=== PATIENT | male | born 1945 | race Caucasian/White ===

== ENCOUNTER → 2016-07-26 | Outpatient (REF) | payer MEDICARE ==
[~2016-07-26] MED LIST: /WARF25TA; ACET65TA; ACTO30TA; ASPI1TAB PO; AZEL0.055; FENT100D25; FENT10PA TD; GABA600T PO; GLUC1000; HYDR-3719 PO; JANU100T PO; KEFL500C; LOSA50TA20 PO; METF1000 PO; NEUR300C; NICO14DI3; OXYB5TAB PO; OXYC10TA97; PERC5TAB8; WELCHOL
== END ==
LOC: M LAB REF 16:48
PROVIDERS: ATTEND Nurse Practitioner Adult Health
DX: L81.8 Other specified disorders of pigmentation (principal)

== ENCOUNTER → 2016-09-13 | Outpatient (CLI) | payer MEDICARE ==
[~2016-09-13] MED LIST changes: -METF1000 PO; +METF10004 PO
== END ==
LOC: M SMT 10:38
PROVIDERS: ATTEND Nurse Practitioner Women's Health
DX: N40.0 Benign prostatic hyperplasia without lower urinary tract symptoms (principal); Z12.5 Encounter for screening for malignant neoplasm of prostate
CPT/HCPCS: 36415; 81001; 87086; G0103; G0463

== ENCOUNTER 2017-11-02 09:52 | Emergency (ER) | payer MEDICARE ==
[2017-11-02] MEDS: ASPIRIN 81 MG CHEW TABLET PO (10:00)
[2017-11-02 10:28] LABS: BASO # 0.1 10^3/uL (0.0-0.2); BASO % 0.5 % (0.0-1.0); EOS # 0.1 10^3/uL (0.0-0.50); EOS % 0.7 % (0.0-3.0); HEMATOCRIT 41.4 % (42.0-52.0); HEMOGLOBIN 14.2 g/dl (13.5-17.5); IMMATURE GRANULOCYTE % 0.6 % (0-3.0); LYMPH # 1.8 10^3/uL (1.5-4.5); LYMPH % 13.9 % (24.0-44.0); MEAN CORPUSCULAR HEMOGLOBIN 31.3 pg (27.0-33.0); MEAN CORPUSCULAR HGB CONC 34.3 g/dl (32.0-36.5); MEAN CORPUSCULAR VOLUME 91.4 fl (80.0-96.0); MONO % 7.8 % (0.0-5.0); NEUTROPHILS # 10.1 10^3/uL (1.8-7.7); NEUTROPHILS % 76.5 % (36.0-66.0); PLATELET COUNT, AUTOMATED 271 10^3/uL (150-450); RED BLOOD COUNT 4.53 10^6/uL (4.30-6.10); RED CELL DISTRIBUTION WIDTH 12.3 % (11.5-14.5); WHITE BLOOD COUNT 13.2 10^3/uL (4.0-10.0)
[2017-11-02 10:50] LABS: INR 1.54; PROTHROMBIN TIME 18.8 SECONDS (12.1-14.4)
[2017-11-02 10:51] LABS: ANION GAP 7 MEQ/L (8-16); BLOOD UREA NITROGEN 22 MG/DL (7-18); CALCIUM LEVEL 9.1 MG/DL (8.8-10.2); CARBON DIOXIDE LEVEL 28 MEQ/L (21-32); CHLORIDE LEVEL 102 MEQ/L (98-107); CK-MB VALUE MASS 1.2 NG/ML (<3.6); CPK CREATINE PHOSPHOKINASE 126 U/L (39-308); CREATININE FOR GFR 1.32 MG/DL (0.70-1.30); GLOMERULAR FILTRATION RATE 57.1 (>42); GLUCOSE, FASTING 131 MG/DL (70-100); MB/CK RELATIVE INDEX 0.95 (< OR =4); PARTIAL THROMBOPLASTIN TIME 47.8 SECONDS (25.4-37.6); POTASSIUM SERUM 4.3 MEQ/L (3.5-5.1); SODIUM LEVEL 137 MEQ/L (136-145); TROPONIN I < 0.02 NG/ML (< 0.10)
[2017-11-02] MEDS: METOPROLOL 5 MG/5 ML VIAL IV ×3 (11:02→11:12)
[2017-11-02 11:09] LABS: ALBUMIN 3.7 GM/DL (3.2-5.2); ALBUMIN/GLOBULIN RATIO 0.84 (1.00-1.93); ALKALINE PHOSPHATASE 61 U/L (45-117); ALT/SGPT 22 U/L (12-78); AST/SGOT 18 U/L (7-37); BILIRUBIN,DIRECT 0.1 MG/DL (0.0-0.2); BILIRUBIN,TOTAL 0.4 MG/DL (0.2-1.0); LIPASE 128 U/L (73-393); TOTAL PROTEIN 8.1 GM/DL (6.4-8.2)
[2017-11-02] MEDS ORDERED: ISOVUE-370 76% 100ML VIAL (Q9967) As Ordered (12:00)
[2017-11-02] MEDS: NORCO, ANEXSIA 5/325MG TABLET (HYDROcodone/ACETAMINOPHEN) PO (12:05)
== END 2017-11-02 13:02 | disposition home or self-care (01) ==
LOC: M ED 09:52
DX: R07.89 Other chest pain (principal); K29.70 Gastritis, unspecified, without bleeding; K80.20 Calculus of gallbladder without cholecystitis without obstruction; I48.91 Unspecified atrial fibrillation; Z79.84 Long term (current) use of oral hypoglycemic drugs; Z79.899 Other long term (current) drug therapy; Z88.8 Allergy status to other drugs, medicaments and biological substances
CPT/HCPCS: Q9967

== ENCOUNTER 2018-06-03 18:10 | Inpatient (IN) | payer MEDICARE ==
[~2018-06-03] VITALS: Ht 177.8 cm; Wt 104.5 kg
[~2018-06-03 18:10] MED LIST changes: +ATOR1TAB21 PO; -GABA600T PO; +GABA600T4 PO; -LOSA50TA20 PO; +LOSA50TA88 PO; +METO1TAB7 PO; +PANT40TA3 PO; +XARE20TA PO
[2018-06-03] MEDS ORDERED: NS 1,000 ML IV ONE ×2 (18:45→19:15)
[2018-06-03] MEDS ORDERED: TIZA4CAP PO (18:49)
--- NOTE | 2018-06-03 18:51 | REP ---
Clinical: Systemic inflammatory response syndrome. Comparison: 11/02/2017. Findings: The mediastinum and cardiac silhouette are stable and within normal limits for portable technique. The lung torres are clear without acute consolidation, effusion, or pneumothorax. Skeletal structures are intact. Impression: No acute cardiopulmonary process appreciated. Electronically Signed by Raffy Samuel MD 06/03/2018 06:43 P
[2018-06-03 18:52] LABS: BASO # 0.1 10^3/uL (0.0-0.2); BASO % 0.5 % (0.0-1.0); EOS % 0.3 % (0.0-3.0); HEMATOCRIT 30.7 % (42.0-52.0); HEMOGLOBIN 10.5 g/dl (13.5-17.5); LYMPH # 1.8 10^3/uL (1.5-4.5); LYMPH % 16.3 % (24.0-44.0); MEAN CORPUSCULAR HEMOGLOBIN 30.7 pg (27.0-33.0); MEAN CORPUSCULAR HGB CONC 34.2 g/dl (32.0-36.5); MEAN CORPUSCULAR VOLUME 89.8 fl (80.0-96.0); MONO # 0.6 10^3/uL (0.0-0.8); MONO % 5.6 % (0.0-5.0); NEUTROPHILS # 8.5 10^3/uL (1.8-7.7); NEUTROPHILS % 76.8 % (36.0-66.0); PLATELET COUNT, AUTOMATED 248 10^3/uL (150-450); RED BLOOD COUNT 3.42 10^6/uL (4.30-6.10)
[2018-06-03 19:23] LABS: ALBUMIN 3.4 GM/DL (3.2-5.2); ALT/SGPT 16 U/L (12-78); BILIRUBIN,DIRECT 0.2 MG/DL (0.0-0.2); BILIRUBIN,TOTAL 0.6 MG/DL (0.2-1.0); BLOOD UREA NITROGEN 52 MG/DL (7-18); CALCIUM LEVEL 8.3 MG/DL (8.8-10.2); CARBON DIOXIDE LEVEL 24 MEQ/L (21-32); CHLORIDE LEVEL 101 MEQ/L (98-107); CPK CREATINE PHOSPHOKINASE 119 U/L (39-308); CREATININE FOR GFR 1.54 MG/DL (0.70-1.30); GLOMERULAR FILTRATION RATE 47.8 (>42); GLUCOSE, FASTING 154 MG/DL (70-100); MB/CK RELATIVE INDEX 1.51 (< OR =4); POTASSIUM SERUM 4.3 MEQ/L (3.5-5.1); SODIUM LEVEL 137 MEQ/L (136-145); THYROID STIMULATING HORMONE 0.668 uIU/ML (0.358-3.740); TOTAL PROTEIN 6.6 GM/DL (6.4-8.2); TROPONIN I < 0.02 NG/ML (< 0.10)
--- NOTE | 2018-06-03 19:31 | ECGEPIP ---
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 : 1945 Requested By: ROLAN Chen Order Number: [id number] Reading MD: Shyanne Guerrier Measurements Intervals [place] Rate: 94 P: ID: 0 QRS: 6 QRSD: 156 T: 23 QT: 367 QTc: 459 Interpretive Statements ATRIAL FIBRILLATION INTRAVENTRICULAR CONDUCTION DELAY PROLONGED QTC NONSPECIFIC ST T WAVE CHANGES CW 11/02/[address] T WAVE CHANGES Electronically Signed On 06-03-2018 19:31:21 EST by Shyanne Guerrier
[2018-06-03 19:33] LABS: INFLUENZA A AMPLIFICATION NEGATIVE (NEGATIVE); INFLUENZA B AMPLIFICATION NEGATIVE (NEGATIVE)
[2018-06-03] MEDS: GABAPENTIN 400 MG CAP PO SCH (21:00)
[2018-06-03] MEDS: NS 1,000 ML IV SCH (22:03)
[2018-06-03] MEDS ORDERED: NEUR800T PO (22:06)
[2018-06-03] MEDS ORDERED: METO1TAB33 PO (22:06)
[2018-06-03] MEDS ORDERED: CHAN1PAK13 PO (22:08)
[2018-06-03] MEDS ORDERED: IBUP80TA PO (22:08)
[2018-06-03] MEDS ORDERED: AMOX500C PO (22:08)
[2018-06-03] MEDS ORDERED: ZETI10TA30 PO (22:08)
[2018-06-03] MEDS ORDERED: DEXTROSE 50% 50 ML SYRINGE IV PRN (22:15)
[2018-06-03] MEDS ORDERED: GLUCAGON FOR INJ 1 MG VIAL (J1610) SC PRN (22:15)
[2018-06-03] MEDS ORDERED: FENTANYL REMOVAL DOCUMENTATION MISC XX SCH (22:15)
[2018-06-03] MEDS ORDERED: NORCO, ANEXSIA 5/325MG TABLET (HYDROcodone/ACETAMINOPHEN) PO PRN (22:15)
[2018-06-03] MEDS ORDERED: GLUCOSE 4 GM CHEW TABLET PO PRN (22:15)
[2018-06-03 22:24] LABS: INR 1.26
[2018-06-03 22:25] LABS: PARTIAL THROMBOPLASTIN TIME 40.6 SECONDS (25.4-37.6)
[2018-06-03] MEDS: AMOXICILLIN 500 MG CAP PO SCH (22:30)
--- NOTE | 2018-06-04 03:27 | HPE ---
DATE OF ADMISSION: 06/03/2018 CHIEF COMPLAINT: Profuse bleeding from the gums status post dental extraction, lightheadedness, dizziness and fatigue. HISTORY OF PRESENT ILLNESS: The patient is a 72-year-old male. He has a significant past medical history of diabetes, coronary artery disease (CAD) status post stenting, atrial fibrillation (AFib) on Xarelto, hyperlipidemia, chronic back pain, urinary incontinence. He presents to the emergency room after he had a dental procedure approximately one day ago. The patient had ten extractions. The patient has been on Xarelto for atrial fibrillation. His last dose of Xarelto was on the day prior to extractions which was Tuesday. The patient states he went home after his extractions on Tuesday and bled all day throughout until this a.m. at which point in time he felt lightheaded, dizzy. He denies any chest pain, palpitations, shortness of breath. He denies any loss of consciousness. His hemoglobin on admission was 10. Baseline hemoglobin of 14 from November 2017. He has been stopped bleeding. He has not taken his dose of Xarelto today. He denies any abdominal pain, constipation, diarrhea, urinary symptoms. PAST MEDICAL HISTORY: See history of the present illness (HPI). PAST SURGICAL HISTORY: 1. Cataract repair. 2. Total knee replacement. 3. Back surgery. 4. Extractions of teeth. HOME MEDICATIONS: Include: - amoxicillin - he is on amoxicillin right now given by his dentist - [place] - fentanyl patch - Zetia - metoprolol - Neurontin - [place] - oxybutynin - Protonix - varenicline - Januvia - metformin ALLERGIES: To ZOCOR. SOCIAL HISTORY: He is a smoker. Denies alcohol or illicit drug use. FAMILY HISTORY: Bone cancer in the mom. REVIEW OF SYSTEMS: A 12-point review of systems was completed, all of which were negative except those listed in the history of the present illness. VITAL SIGNS ON ADMISSION: Initial temperature 97, pulse 109 , respirations 20, saturating 100% on room air. Initial blood pressure 76/48 which has been responsive to fluids. PHYSICAL EXAMINATION: General: He is well nourished, in no apparent distress. Head is normocephalic, atraumatic. Eyes: Extraocular movements are intact. Pupils equal, round, reactive to light. Neck is supple. No jugular venous pressure (JVP). Lungs: Clear to auscultation. No crackles, wheezes, rales or rhonchi. Cardiovascular: Regular rate and rhythm. Normal S1, S2. No murmurs, gallops, or rubs. Abdomen: Soft, nontender, nondistended, positive bowel sounds. No rebound or guarding. Extremities: No pitting edema or calf tenderness. Skin: Intact. No rashes, lesions or breakdown. Neurological: Alert and oriented (A and O) times three. No focal deficits. LABORATORIES AND IMAGING COMPLETED IN THE EMERGENCY ROOM: White count of 11, hemoglobin and hematocrit (H and H) of 10/30, platelet count of 248. Coagulation panel (coags) are pending. Chemistry: BUN and creatinine of 52/1.54. Baseline creatinine appears to be around 1.3. Lactate of 2.2. Flu is negative. Blood glucose 134. Chest x-ray shows no acute disease. ASSESSMENT AND PLAN: 1. Acute blood loss anemia status post dental extractions while on anticoagulation. Will hold Xarelto. Will do serial hemoglobins. Will monitor for signs of bleed. Intravenous (IV) fluids. Will place sequential compression devices (SCDs) for deep vein thrombosis (DVT) prophylaxis. 2. For atrial fibrillation (AFib): Xarelto being held. Metoprolol also held in the setting of hypotension if the patient is currently in sinus rhythm. 3. Diabetes: Hold oral hypoglycemics. Insulin sliding scale. 4. Hyperlipidemia: Continue statin. 5. Chronic back pain: Continue pain regimen. 6. Status post dental extractions: Continue his antibiotics as per dentistry. 7. Supportive deep vein thrombosis (DVT) prophylaxis: Sequential compression device (SCD). 8. Gastrointestinal (GI) prophylaxis: Not indicated. 9. For history of tobacco abuse: The patient is on Chantix. 10. Diet: Cardiac, diabetic diet.
[2018-06-04 07:26] LABS: HEMATOCRIT 26.7 % (42.0-52.0); MEAN CORPUSCULAR HEMOGLOBIN 30.5 pg (27.0-33.0); MEAN CORPUSCULAR HGB CONC 33.7 g/dl (32.0-36.5); MEAN CORPUSCULAR VOLUME 90.5 fl (80.0-96.0); PLATELET COUNT, AUTOMATED 201 10^3/uL (150-450); RED BLOOD COUNT 2.95 10^6/uL (4.30-6.10); WHITE BLOOD COUNT 9.3 10^3/uL (4.0-10.0)
[2018-06-04] MEDS: HumaLOG INSULIN (NovoLOG) PER UNIT SC SCH ×3 (07:30→17:20)
[2018-06-04 07:52] LABS: BLOOD UREA NITROGEN 40 MG/DL (7-18); CALCIUM LEVEL 7.9 MG/DL (8.8-10.2); CARBON DIOXIDE LEVEL 26 MEQ/L (21-32); CHLORIDE LEVEL 108 MEQ/L (98-107); CREATININE FOR GFR 1.12 MG/DL (0.70-1.30); GLOMERULAR FILTRATION RATE > 60.0 (>42); GLUCOSE, FASTING 91 MG/DL (70-100); POTASSIUM SERUM 4.6 MEQ/L (3.5-5.1); SODIUM LEVEL 140 MEQ/L (136-145)
[2018-06-04] MEDS: GABAPENTIN 400 MG CAP PO SCH ×3 (08:13→21:21)
[2018-06-04] MEDS: tiZANidine 4 MG TAB PO SCH (08:13)
[2018-06-04] MEDS: PANTOPRAZOLE 40MG TAB (PROTONIX) PO SCH (08:13)
[2018-06-04] MEDS: EZETIMIBE 10 MG TAB (ZETIA) PO SCH (08:14)
[2018-06-04] MEDS: oxyBUTYnin *DITROPAN XL* 5 MG TABCR PO SCH (08:14)
[2018-06-04] MEDS: AMOXICILLIN 500 MG CAP PO SCH ×3 (08:14→21:21)
[2018-06-04] MEDS: VARENICLINE 1 MG TABLET PO SCH ×2 (08:14→21:21)
[2018-06-04 08:30] VITALS: BP_SYST 111; BP_SYST 121; BP_SYST 164; BP_DIAS 58; BP_DIAS 59; BP_DIAS 72
[2018-06-04] MEDS: NS 1,000 ML IV SCH ×2 (10:00→22:48)
--- NOTE | 2018-06-04 11:36 | IPNPDOC ---
Text Note Date of Service The patient was seen on 06/04/18. NOTE Subjective: Patient is a 72-year-old male with a PMHx of CAD s/p stent, A. fib (on Xarelto), DLP, DM2, Urinary incontinence, Chronic back pain who presented to the ER with complaints of light-headedness and dizziness after having profuse bleeding from a dental extraction. Patient has noted that he has been off Xarelto 1 day prior (Last dose ) to the dental extraction (Tuesday). He continued to bleed at home on tuesday and presented to the ER after experiencing symptoms. Upon arrival to the emergency room, patient was found to have a hemoglobin of 10, his baseline hemoglobin runs around 14. Patient was seen and examined at the bedside. Patient denies any chest pain, shortness of breath or palpitations. He does note that his expensive, some lightheadedness and dizziness, although he notes that he expenses. This frequently. Denies any nausea, vomiting, abdominal pain, constipation, diarrhea or discomfort with urination. Patient denies any dark colored stools. Objective: Vitals (See below) General: Lying in bed, no acute distress, comfortable, AAOx3 HEENT: NC, AT CVS: RRR, +S1S2 Lungs: Fair air entry b/l, -w/r/r Abdomen: Soft, ND, NT Extremities: - Edema, - Calf tenderness Assessment and plan: Acute blood loss anemia / Symptomatic anemia - likely 2/2 bleeding from dental extractions while on an extrinsic anticoagulant (Xarelto) - Presented to the ER with complaints of dizziness and lightheadedness - Patient denied chest pain, shortness of breath or palpitations - Physical does reveal positive orthostatic hypotension - Hemoglobin baseline of approximately 14; upon arrival was approximately 10 - Will continue to follow hemoglobin every 6 hours - Consented for transfusion acquired, will transfuse as needed - c/w IV fluid hydration s/p Lactic acidosis - likely 2/2 hypovolemia - 2/2 above Atrial fibrillation - Patient has been held off of metoprolol given hypotension in the ER - Will restart Metoprolol; will start short acting with holding parameters - Continue to hold anticoagulation with Xarelto Recent Dental extraction - c/w Amoxicillin; start by Dentist as outpatient DLP - c/w Ezetimibe NIDDM2 - c/w ISS Urinary incontinence - c/w Oxybutynin Chronic back pain - c/w Tizanidine, Gabapentin and Fentanyl patch Hx of Tobacco abuse - c/w Varenicline GERD - c/w Protonix DVT prophylaxis - c/w SCDs VS,Fishbone, I+O VS, Fishbone, I+O Laboratory Tests 06/03/18 18:36 06/03/18 18:37 Red Blood Count 3.42 L, Mean Corpuscular Volume 89.8, Mean Corpuscular Hemoglobin 30.7, Mean Corpuscular Hemoglobin Concent 34.2, Red Cell Distribution Width 12.1, Neutrophils (%) (Auto) 76.8 H, Lymphocytes (%) (Auto) 16.3 L, Monocytes (%) (Auto) 5.6 H, Eosinophils (%) (Auto) 0.3, Basophils (%) (Auto) 0.5, Neutrophils # (Auto) 8.5 H, Lymphocytes # (Auto) 1.8, Monocytes # (Auto) 0.6, Eosinophils # (Auto) 0.0, Basophils # (Auto) 0.1 06/03/18 23:51 06/04/18 07:04 Red Blood Count 2.95 L, Mean Corpuscular Volume 90.5, Mean Corpuscular Hemoglobin 30.5, Mean Corpuscular Hemoglobin Concent 33.7, Red Cell Distribution Width 12.4, Calcium Level 7.9 L Vital Signs Date Time Temp Pulse Resp B/P (MAP) Pulse Ox O2 Delivery O2 Flow Rate FiO2 06/04/18 08:54 18 06/04/18 08:30 62 164/72 (102) 71 121/58 (79) 81 111/59 (76) 06/04/18 08:30 98.7 97 06/04/18 03:50 Room Air I&O- Last 24 Hours up to 6 AM 06/04/18 06:00 Intake Total 200 ml Output Total 600 ml Balance -400 ml KALYANI MITCHELL MD Jun 04, 2018 11:36
[2018-06-04 11:55] VITALS: BP 116/59
[2018-06-04] MEDS: METOPROLOL TART 25 MG TABLET PO SCH ×3 (11:55→23:35)
[2018-06-04 12:10] LABS: HEMATOCRIT 24.1 % (42.0-52.0); HEMOGLOBIN 8.3 g/dl (13.5-17.5)
[2018-06-04 14:05] VITALS: BP 113/66
[2018-06-04] MEDS ORDERED: fentaNYL 100 MCG/HR PATCH TD SCH (15:00)
[2018-06-04 18:33] VITALS: BP 143/71
[2018-06-04 22:00] VITALS: BP 134/84
[2018-06-04 23:30] VITALS: BP 137/78
[2018-06-05 00:32] LABS: HEMATOCRIT 31.6 % (42.0-52.0)
[2018-06-05 00:37] LABS: HEMOGLOBIN 10.8 g/dl (13.5-17.5)
[2018-06-05] MEDS ORDERED: VANCOMYCIN HCL 1,000 MG, VIAL MATE ADAPTER 1 EACH in D5W 250 ML IV ONE (04:00)
--- NOTE | 2018-06-05 04:02 | PHACANCOPD ---
PHARMACY VANCOMYCIN DOSING Pt Demographics Demographics Patient Age:72 , Weight:104.500 , Gender: male Adjusted Body Weight Date: 06/05/18, Adjusted Body Weight: Kg Events Past 24 Hours Events Past 24 Hours: NO: Dialysis, Diuretic Therapy, Change in CrCl, Fever, Elevation in WBC, Pending Diagnostics, Pending Procedures, Other Vancomycin Vancomycin Load Y/N: Yes Load Dose Date Time Vancomycin Load Dose: 2000mg Date: 06-05 Time: 0600 Vancomycin Dose Date: 06/05/18. Current Vancomycin Dose: [1000mg q8h] Intermittent Dosing?: No Labs Labs Item Value Date Time White Blood Count 9.3 10^3/uL 06/04/18 0704 Creatinine 1.12 MG/DL 06/04/18 0704 Glomerular Filtration Rate > 60.0 06/04/18 0704 Blood Urea Nitrogen 40 MG/DL H 06/04/18 0704 Vital Signs Label Value Date Time Patient Temperature 98.0 degrees F 06/04/18 2330 Temperature Source Temporal 06/04/18 2330 Micro Microbiology 06/03/18 Blood Culture - Preliminary, Resulted No growth after 24 hours . All specim... 06/03/18 Blood Culture - Preliminary, Resulted Creatinine Clearance Date:06/05/18. Creatinine Clearance: [~60]. Pending Labs Trough 03-04 @2100 Assessment and Plan Maintaining Current Dose?: Yes Reason for dose change: No Dose Change Pharmacist Note Pharmacist Note Date: 06/05/18. Pharmacist note:Will monitor and make adjustments as needed. VALERY ALMENDAREZ PHARMACY Jun 05, 2018 04:02
[2018-06-05 06:00] VITALS: BP 130/67
[2018-06-05] MEDS ORDERED: VANCOMYCIN HCL 1,000 MG, VIAL MATE ADAPTER 1 EACH in D5W 250 ML IV SCH (06:00)
[2018-06-05] MEDS: METOPROLOL TART 25 MG TABLET PO SCH ×4 (06:11→23:06)
[2018-06-05 06:19] LABS: HEMATOCRIT 31.1 % (42.0-52.0); HEMOGLOBIN 10.8 g/dl (13.5-17.5); MEAN CORPUSCULAR HGB CONC 34.7 g/dl (32.0-36.5); MEAN CORPUSCULAR VOLUME 89.4 fl (80.0-96.0); PLATELET COUNT, AUTOMATED 178 10^3/uL (150-450); RED BLOOD COUNT 3.48 10^6/uL (4.30-6.10); WHITE BLOOD COUNT 8.1 10^3/uL (4.0-10.0)
[2018-06-05 06:51] LABS: BLOOD UREA NITROGEN 24 MG/DL (7-18); CALCIUM LEVEL 8.1 MG/DL (8.8-10.2); CARBON DIOXIDE LEVEL 27 MEQ/L (21-32); CHLORIDE LEVEL 107 MEQ/L (98-107); CREATININE FOR GFR 1.18 MG/DL (0.70-1.30); GLOMERULAR FILTRATION RATE > 60.0 (>42); GLUCOSE, FASTING 116 MG/DL (70-100); POTASSIUM SERUM 4.3 MEQ/L (3.5-5.1); SODIUM LEVEL 140 MEQ/L (136-145)
[2018-06-05] MEDS: HumaLOG INSULIN (NovoLOG) PER UNIT SC SCH ×3 (07:40→18:06)
[2018-06-05] MEDS: tiZANidine 4 MG TAB PO SCH (07:40)
[2018-06-05] MEDS: EZETIMIBE 10 MG TAB (ZETIA) PO SCH (07:41)
[2018-06-05] MEDS: GABAPENTIN 400 MG CAP PO SCH ×3 (07:41→20:39)
[2018-06-05] MEDS: oxyBUTYnin *DITROPAN XL* 5 MG TABCR PO SCH (07:41)
[2018-06-05] MEDS: PANTOPRAZOLE 40MG TAB (PROTONIX) PO SCH (07:41)
[2018-06-05] MEDS: VARENICLINE 1 MG TABLET PO SCH ×2 (07:41→20:39)
[2018-06-05] MEDS ORDERED: fentaNYL 100 MCG/HR PATCH TD SCH (09:00)
[2018-06-05] MEDS: NS 1,000 ML IV SCH ×2 (12:01→23:06)
[2018-06-05 14:00] VITALS: BP 116/71
--- NOTE | 2018-06-05 14:58 | IPNPDOC ---
Text Note Date of Service The patient was seen on 06/05/18. NOTE Subjective: Patient is a 72-year-old male with a PMHx of CAD s/p stent, A. fib (on Xarelto), DLP, DM2, Urinary incontinence, Chronic back pain who presented to the ER with complaints of light-headedness and dizziness after having profuse bleeding from a dental extraction. Patient has noted that he has been off Xarelto 1 day prior (Last dose ) to the dental extraction (Tuesday). He continued to bleed at home on tuesday and presented to the ER after experiencing symptoms. Upon arrival to the emergency room, patient was found to have a hemoglobin of 10, his baseline hemoglobin runs around 14. Patient was seen and examined at the bedside. , Currently patient has no new complaints. He denies any lightheadedness or dizziness. Denies chest pain, shortness of breath or palpitations. Has not experienced any further bleeding episodes. Has not yet experienced a bowel movement was not sure of any change in the color of his stool. He denies any abdominal pain, nausea or vomiting. Objective: Vitals (See below) General: Lying in bed, no acute distress, comfortable, AAOx3 HEENT: NC, AT CVS: RRR, +S1S2 Lungs: Fair air entry b/l, auscultation is without any wheezing, rhonchi or rales Abdomen: Soft, nondistended, without tenderness Extremities: No evidence of LE edema, - Calf tenderness Assessment and plan: Acute blood loss anemia / Symptomatic anemia - likely 2/2 bleeding from dental extractions while on an extrinsic anticoagulant (Xarelto) - Presented to the ER with complaints of dizziness and lightheadedness; currently patient is asymptomatic and denies shortness of breath, dizziness or chest pain - Physical initially revealed positive orthostatics; will repeat - Hemoglobin baseline of approximately 14; upon arrival was approximately 10; had trended down to ~8; s/p 2 units PRBC - Hemoglobin appears stable after transfusion - Will repeat H&H to ensure stability - c/w IV fluid hydration s/p Lactic acidosis - likely 2/2 hypovolemia - 2/2 above Atrial fibrillation s/p RVR - Patient was initially held off of metoprolol given hypotension while in the ER - Yesterday evening patient went into A. fib with RVR; his metoprolol dose was already resumed and patient reverted back into a controlled A. fib and then NSR - c/w Metoprolol; tartrate - Continue to hold anticoagulation with Xarelto - Will have outpatient follow-up with cardiology Positive blood cultures (1 of 2) bottles - gram positive cocci in pairs and clusters - Clinically patient has no new complaints - Remains afebrile and hemodynamically stable - No leukocytosis; s/p lactic acidosis - Will repeat blood cultures 2 sets - Patient's antibiotics have been adjusted to vancomycin Recent Dental extraction - Antibiotic change (see above) DLP - c/w Ezetimibe NIDDM2 - c/w ISS Urinary incontinence - c/w Oxybutynin Chronic back pain - c/w Tizanidine, Gabapentin and Fentanyl patch Hx of Tobacco abuse - c/w Varenicline GERD - c/w Protonix DVT prophylaxis - c/w SCDs Disposition: - Awaiting repeat blood cultures - Ensure H&H stability VS,Fishbone, I+O VS, Fishbone, I+O Laboratory Tests 06/05/18 00:16 06/05/18 05:59 Red Blood Count 3.48 L, Mean Corpuscular Volume 89.4, Mean Corpuscular Hemoglobin 31.0, Mean Corpuscular Hemoglobin Concent 34.7, Red Cell Distribution Width 13.0, Calcium Level 8.1 L Vital Signs Date Time Temp Pulse Resp B/P (MAP) Pulse Ox O2 Delivery O2 Flow Rate FiO2 06/05/18 12:45 60 146/69 06/05/18 06:00 97.5 17 93 06/04/18 03:50 Room Air I&O- Last 24 Hours up to 6 AM 06/05/18 05:59 Intake Total 1900 ml Output Total 400 ml Balance 1500 ml KALYANI MITCHELL MD Jun 05, 2018 14:58
[2018-06-05 15:14] LABS: HEMATOCRIT 33.5 % (42.0-52.0); HEMOGLOBIN 11.3 g/dl (13.5-17.5)
[2018-06-05] MEDS: VANCOMYCIN HCL 750 MG, VIAL MATE ADAPTER 1 EACH in D5W 250 ML IV SCH (16:22)
[2018-06-05] MEDS: VANCOMYCIN HCL 500 MG in D5W MINI-BAG PLUS 100 ML IV SCH (18:06)
[2018-06-05 19:59] LABS: HEMATOCRIT 32.9 % (42.0-52.0); HEMOGLOBIN 11.3 g/dl (13.5-17.5)
[2018-06-05 22:00] VITALS: BP 148/89
[2018-06-06 05:36] LABS: MEAN CORPUSCULAR HEMOGLOBIN 30.6 pg (27.0-33.0); MEAN CORPUSCULAR HGB CONC 34.5 g/dl (32.0-36.5); MEAN CORPUSCULAR VOLUME 88.7 fl (80.0-96.0); PLATELET COUNT, AUTOMATED 182 10^3/uL (150-450); RED BLOOD COUNT 3.27 10^6/uL (4.30-6.10); WHITE BLOOD COUNT 7.2 10^3/uL (4.0-10.0)
[2018-06-06] MEDS: VANCOMYCIN HCL 750 MG, VIAL MATE ADAPTER 1 EACH in D5W 250 ML IV SCH (05:43)
[2018-06-06 06:00] VITALS: BP 128/75
[2018-06-06 06:01] LABS: BLOOD UREA NITROGEN 18 MG/DL (7-18); CALCIUM LEVEL 8.1 MG/DL (8.8-10.2); CARBON DIOXIDE LEVEL 26 MEQ/L (21-32); CHLORIDE LEVEL 107 MEQ/L (98-107); CREATININE FOR GFR 1.14 MG/DL (0.70-1.30); GLOMERULAR FILTRATION RATE > 60.0 (>42); GLUCOSE, FASTING 101 MG/DL (70-100); POTASSIUM SERUM 4.2 MEQ/L (3.5-5.1); SODIUM LEVEL 140 MEQ/L (136-145)
[2018-06-06] MEDS: METOPROLOL TART 25 MG TABLET PO SCH ×2 (06:11→13:06)
[2018-06-06] MEDS: VANCOMYCIN HCL 500 MG in D5W MINI-BAG PLUS 100 ML IV SCH (06:46)
[2018-06-06] MEDS: HumaLOG INSULIN (NovoLOG) PER UNIT SC SCH ×2 (07:30→13:00)
--- NOTE | 2018-06-06 08:39 | ECHO ---
DATE: 06/05/2018 REFERRING PHYSICIAN: Dr. Nguyen Tuesday INDICATION: Sepsis. HEIGHT: 170 cm. WEIGHT: 105 kg. DIMENSIONS: IVS 1.3 LV 4.4 LVPW 1.3 LA 4.3 Aorta 3.6 IVC 1.7 Mitral E wave velocity 111 A wave 116 A prime septal 5.5 E prime lateral 10.9 FINDINGS: This study is of fair technical quality. The patient is in sinus rhythm. Left ventricle is normal size and has overall normal contractility, I estimate left ventricular ejection fraction (LVEF) 60-65%. Based on limitations of the study I cannot rule out subtle wall motion abnormalities. Mild LVH is present. Right ventricle appears normal. Left atrium is at least mildly enlarged. Right atrium was poorly visualized but grossly appears normal. Aortic valve has three leaflets, it is poorly visualized. There is some degree of sclerosis but mobility is preserved. There are also degenerative abnormalities of mitral valve is mitral annular calcifications but mobility of leaflets is preserved. Tricuspid valve appears normal. Pulmonic valve was poorly visualized but grossly appears normal. No pericardial effusion is noted. Inferior vena cava is normal size. Aortic root is normal. Aortic arch and abdominal aorta were not well seen. Doppler interrogation of aortic valve reveals no stenosis or insufficiency. Same applies for mitral tricuspid and pulmonic valves. Mitral inflow pattern and tissue Doppler imaging of mitral annulus reveal grade 1 diastolic dysfunction. CONCLUSIONS: 1. Study is of fair technical quality. 2. Normal LV size with mild LVH and preserved LV systolic function. Grade 1 diastolic dysfunction. 3. Sclerotic abnormalities of aortic and mitral valves but functionally no impairment. 4. Normal central venous pressure. 5. Unable to estimate pulmonary artery pressure but no signs to suggest pulmonary hypertension. COMMENT: SBE prophylaxis is not recommended. Overall study most consistent with mild form of hypertensive heart disease, even though no vegetations were seen a very high suspicion for bacterial endocarditis is present then transesophageal echocardiogram will provide much better resolution.
[2018-06-06] MEDS: oxyBUTYnin *DITROPAN XL* 5 MG TABCR PO SCH (09:55)
[2018-06-06] MEDS: GABAPENTIN 400 MG CAP PO SCH (09:55)
[2018-06-06] MEDS: VARENICLINE 1 MG TABLET PO SCH (09:55)
[2018-06-06] MEDS: EZETIMIBE 10 MG TAB (ZETIA) PO SCH (09:55)
[2018-06-06] MEDS: PANTOPRAZOLE 40MG TAB (PROTONIX) PO SCH (09:55)
[2018-06-06] MEDS: tiZANidine 4 MG TAB PO SCH (09:55)
[2018-06-06 10:24] VITALS: BP_SYST 144; BP_SYST 187; BP_SYST 201; BP_DIAS 76; BP_DIAS 87; BP_DIAS 91
--- NOTE | 2018-06-06 12:44 | DS.PDOC ---
Discharge Summary General Date of Admission Jun 05, 2018 at 10:14 Date of Discharge 06/06/2018 Discharge Summary PROCEDURES PERFORMED DURING STAY: [None]. ADMITTING DIAGNOSES / DISCHARGE DIAGNOSES: Acute blood loss anemia / Symptomatic anemia - likely 2/2 bleeding from dental extractions while on an extrinsic anticoagulant (Xarelto) s/p Lactic acidosis - likely 2/2 hypovolemia - 2/2 above Atrial fibrillation s/p RVR Positive blood cultures (1 of 2) bottles - Gram positive cocci in pairs and clusters (Coagulase negative) - likely 2/2 contaminant Recent Dental extraction DLP NIDDM2 Urinary incontinence Chronic back pain Hx of Tobacco abuse GERD DVT prophylaxis COMPLICATIONS/CHIEF COMPLAINT: Dizziness and lightheadedness HISTORY OF PRESENT ILLNESS: Patient is a 72-year-old male with a PMHx of CAD s/p stent, A. fib (on Xarelto), DLP, DM2, Urinary incontinence, Chronic back pain who presented to the ER with complaints of light-headedness and dizziness after having profuse bleeding from a dental extraction. Patient has noted that he has been off Xarelto 1 day prior (Last dose ) to the dental extraction (Tuesday). He continued to bleed at home on Tuesday and presented to the ER after experiencing symptoms. Upon arrival to the emergency room, patient was found to have a hemoglobin of 10, his baseline hemoglobin runs around 14. HOSPITAL COURSE: Acute blood loss anemia / Symptomatic anemia - likely 2/2 bleeding from dental extractions while on an extrinsic anticoagulant (Xarelto) - Presented to the ER with complaints of dizziness and lightheadedness; currently patient is asymptomatic and denies shortness of breath, dizziness or chest pain - Physical initially revealed positive orthostatics; will repeat - Hemoglobin baseline of approximately 14; upon arrival was approximately 10; had trended down to ~8; s/p 2 units PRBC - Hemoglobin has remained stable after transfusions and over 24 hours - c/w IV fluid hydration s/p Lactic acidosis - likely 2/2 hypovolemia - 2/2 above Atrial fibrillation s/p RVR - Patient was initially held off of metoprolol given hypotension while in the ER - Yesterday evening patient went into A. fib with RVR; his metoprolol dose was already resumed and patient reverted back into a controlled A. fib and then NSR - c/w Metoprolol tartrate; will resume metoprolol succinate upon discharge - Continue to hold anticoagulation with Xarelto; will have outpatient follow-up with Cardiology Positive blood cultures (1 of 2) bottles - gram positive cocci in pairs and clusters - Clinically patient has no new complaints - Remains afebrile and hemodynamically stable - No leukocytosis; s/p lactic acidosis - Blood cultures 06/03: 1 of 2 bottles positive for gram-positive cocci in pairs and clusters - Blood cultures 06/05: No growth at 24 hours - Discussed with microbiology species is coagulase-negative; strong likelihood of contamination - Antibiotics will be discontinued Recent Dental extraction - Upon discharge; patient will be returned back onto amoxicillin DLP - c/w Ezetimibe NIDDM2 - c/w ISS Urinary incontinence - c/w Oxybutynin Chronic back pain - c/w Tizanidine, Gabapentin and Fentanyl patch Hx of Tobacco abuse - c/w Varenicline GERD - c/w Protonix DVT prophylaxis - c/w SCDs DISCHARGE MEDICATIONS: Please see below. ALLERGIES: Please see below. PHYSICAL EXAMINATION ON DISCHARGE: Vitals (See below) General: Lying in bed, no acute distress, comfortable, AAOx3 HEENT: NC, AT CVS: RRR, +S1S2 Lungs: Fair air entry b/l, there does not appear to be any evidence of rhonchi, wheezing or rales. Upon auscultation Abdomen: Abdomen again remains soft, nondistended, without tenderness Extremities: LE edema is not present, - Calf tenderness LABORATORY DATA: Please see below. ACTIVITY: [As tolerated]. DISCHARGE PLAN: Follow up with Dr. Walker Alfonso and Dr. Johnson within 7 days Remain compliant with treatment plan and medications Return to the ER if you experience any problems DISPOSITION: Home DISCHARGE CONDITION: [Stable]. TIME SPENT ON DISCHARGE: Greater than [35] minutes. Vital Signs/I&Os Vital Signs Date Time Temp Pulse Resp B/P (MAP) Pulse Ox O2 Delivery O2 Flow Rate FiO2 06/06/18 10:24 61 144/76 (98) 66 187/87 (120) 63 201/91 (127) 06/06/18 06:00 99.6 18 99 06/04/18 03:50 Room Air I&O- Last 24 Hours up to 6 AM 06/06/18 06:00 Intake Total 3065 ml Output Total 0 ml Balance 3065 ml Laboratory Data Labs 24H Laboratory Tests 2 06/05/18 16:38: Bedside Glucose (Misc Panel) 154H 06/06/18 05:11: Nucleated Red Blood Cells % (auto) 0.0, Anion Gap 7L, Glomerular Filtration Rate > 60.0, Blood Urea Nitrogen 18, Creatinine 1.14, Sodium Level 140, Potassium Level 4.2, Chloride Level 107, Carbon Dioxide Level 26, Calcium Level 8.1L CBC/BMP Laboratory Tests 06/05/18 15:04 06/05/18 19:47 06/06/18 05:11 Red Blood Count 3.27 L, Mean Corpuscular Volume 88.7, Mean Corpuscular Hemoglobi n 30.6, Mean Corpuscular Hemoglobin Concent 34.5, Red Cell Distribution Width 12.7, Calcium Level 8.1 L FSBS Laboratory Tests Test 06/05/18 16:38 Range/Units Bedside Glucose (Misc Panel) 154 83-110 MG/DL Microbiology Microbiology 06/05/18 Blood Culture - Preliminary, Resulted No growth after 24 hours . All specim... 06/05/18 Blood Culture - Preliminary, Resulted No growth after 24 hours . All specim... 06/03/18 Blood Culture - Preliminary, Resulted No Growth after 48 hours. All Specime... 06/03/18 Blood Culture - Preliminary, Resulted Discharge Medications Scheduled Amoxicillin (Amoxicillin) 500 Mg Cap, 500 MG PO TID, (Reported) STARTED 06/03/18 AT 0700. TO TAKE X 7 DAYS. Ezetimibe (Zetia) 10 Mg Tab, 10 MG PO DAILY, (Reported) Fentanyl (Fentanyl) 100 Mcg Tdsy, 100 MCG TD Q3RD, (Reported) CURRENTLY APPLIED TO UPPER RIGHT ARM Gabapentin (Neurontin) 800 Mg Tab, 800 MG PO TID, (Reported) Ibuprofen (Ibuprofen) 800 Mg Tab, 800 MG PO TID, (Reported) STARTED 06/03/18 AT 0700. TO TAKE X 7 DAYS. Metformin Hydrochloride (Metformin HCl) 1,000 Mg Tab, 1,000 MG PO DAILY, (Reported) Metoprolol Succinate (Metoprolol Succinate ER) 100 Mg Tab, 100 MG PO DAILY, (Reported) Oxybutynin Chloride (Oxybutynin Chloride ER) 5 Mg Tab, 5 MG PO DAILY, (Reported) Pantoprazole Sodium (Pantoprazole Sodium) 40 Mg Tab, 40 MG PO DAILY, (Reported) Sitagliptin Phosphate (Januvia) 100 Mg Tab, 100 MG PO DAILY, (Reported) Tizanidine Hydrochloride (Tizanidine HCl) 4 Mg Cap, 4 MG PO DAILY, (Reported) Varenicline Tartrate (Chantix Continuing Month) 1 Mg Josh, 1 MG PO BID, (Reported) Scheduled PRN Acetaminophen/Hydrocodone (Hydrocodone/Acetaminophen 10-325 mg) 1 Tab Tab, 1 TAB PO TID PRN for PAIN, (Reported) MAY TAKE 2 TABS IF NEEDED Allergies Coded Allergies: Simvastatin (Unverified Allergy, Unknown, UNK, 10/29/15) ASKED PATIENT ABOUT THIS MED, HE'S NOT AWARE THAT HE'S ALLERGIC TO ANYTHING. KALYANI MITCHELL MD Jun 06, 2018 12:44
[2018-06-06 13:02] VITALS: BP 166/78
[2018-06-06 13:06] VITALS: BP 166/78
== END 2018-06-06 13:17 | disposition home or self-care (01) | DRG 813 ==
LOC: M ED 18:10 → M ED INP 22:03 → M MSPAV 06-04 14:04 → OBSVTOIN 06-05 10:14 → M MSPAV 06-05 11:55
PROVIDERS: ADMIT Internal Medicine; ATTEND Internal Medicine
PROC: 30233N1 Transfusion of Nonautologous Red Blood Cells into Peripheral Vein, Percutaneous Approach (ICD-10-PCS; principal; 2018-06-04)
DX: D68.32 Hemorrhagic disorder due to extrinsic circulating anticoagulants (principal); E87.2 Acidosis; D62 Acute posthemorrhagic anemia; E11.9 Type 2 diabetes mellitus without complications; I25.10 Atherosclerotic heart disease of native coronary artery without angina pectoris; I48.91 Unspecified atrial fibrillation; E78.5 Hyperlipidemia, unspecified; M54.9 Dorsalgia, unspecified; K21.9 Gastro-esophageal reflux disease without esophagitis; F17.200 Nicotine dependence, unspecified, uncomplicated; R32 Unspecified urinary incontinence; Z79.891 Long term (current) use of opiate analgesic; Z79.01 Long term (current) use of anticoagulants; Z79.84 Long term (current) use of oral hypoglycemic drugs; Z79.899 Other long term (current) drug therapy; T45.515A Adverse effect of anticoagulants, initial encounter; Z98.890 Other specified postprocedural states

== ENCOUNTER → 2019-11-27 | Outpatient (CLI) | payer MEDICARE ==
[~2019-11-27] MED LIST changes: -/WARF25TA; +AMOX500C PO; -ASPI1TAB PO; +ASPI81TA26 PO; +CHAN1PAK13 PO; +COUM1TAB18; +IBUP80TA PO; +METO1TAB33 PO; +NEUR800T PO; +OXYB-54 PO; -OXYB5TAB PO; +PANT40TA29 PO; -PANT40TA3 PO; +TIZA4CAP PO; +ZETI10TA16 PO
[2019-11-27 15:35] LABS: HEMATOCRIT 41.4 % (42.0-52.0); HEMOGLOBIN 13.5 g/dl (13.5-17.5); MEAN CORPUSCULAR HEMOGLOBIN 31.3 pg (27.0-33.0); MEAN CORPUSCULAR HGB CONC 32.6 g/dl (32.0-36.5); MEAN CORPUSCULAR VOLUME 96.1 fl (80.0-96.0); PLATELET COUNT, AUTOMATED 229 10^3/uL (150-450); RED BLOOD COUNT 4.31 10^6/uL (4.30-6.10); WHITE BLOOD COUNT 8.6 10^3/uL (4.0-10.0)
[2019-11-27 23:01] LABS: ALBUMIN 4.1 GM/DL (3.2-5.2); BILIRUBIN,TOTAL 0.4 MG/DL (0.2-1.0); CALCIUM LEVEL 9.5 MG/DL (8.8-10.2); CREATININE FOR GFR 3.27 MG/DL (0.70-1.30); GLOMERULAR FILTRATION RATE 19.9 (>42); MAGNESIUM LEVEL 2.3 MG/DL (1.8-2.4); PHOSPHORUS LEVEL 4.1 MG/DL (2.5-4.9); POTASSIUM SERUM 5.2 MEQ/L (3.5-5.1); TOTAL PROTEIN 7.5 GM/DL (6.4-8.2)
== END ==
LOC: M WUC 12:33
PROVIDERS: ATTEND Nurse Practitioner Family
DX: I95.9 Hypotension, unspecified (principal)

== ENCOUNTER 2019-12-01 14:06 | Emergency (ER) | payer MEDICARE ==
[~2019-12-01] VITALS: Ht 177.8 cm; Wt 97.9 kg
[2019-12-01] MEDS ORDERED: NS 1,000 ML IV SCH (14:31)
[2019-12-01 15:02] LABS: IONIZED CALCIUM 4.6 MG/DL (4.5-5.3)
[2019-12-01 15:07] LABS: BASO # 0.1 10^3/uL (0.0-0.2); BASO % 0.9 % (0.0-1.0); EOS # 0.2 10^3/uL (0.0-0.5); EOS % 3.1 % (0.0-3.0); HEMATOCRIT 40.6 % (42.0-52.0); HEMOGLOBIN 13.6 g/dl (13.5-17.5); LYMPH % 29.2 % (24.0-44.0); MEAN CORPUSCULAR HEMOGLOBIN 31.7 pg (27.0-33.0); MEAN CORPUSCULAR HGB CONC 33.5 g/dl (32.0-36.5); MEAN CORPUSCULAR VOLUME 94.6 fl (80.0-96.0); MONO # 0.5 10^3/uL (0.0-0.8); MONO % 7.1 % (0.0-5.0); PLATELET COUNT, AUTOMATED 225 10^3/uL (150-450); RED BLOOD COUNT 4.29 10^6/uL (4.30-6.10); WHITE BLOOD COUNT 6.8 10^3/uL (4.0-10.0)
[2019-12-01 15:19] LABS: INR 1.26; PROTHROMBIN TIME 16.1 SECONDS (11.8-14.0)
[2019-12-01 15:33] LABS: BILIRUBIN,TOTAL 0.5 MG/DL (0.2-1.0); CALCIUM LEVEL 9.1 MG/DL (8.8-10.2); CREATININE FOR GFR 1.97 MG/DL (0.70-1.30); GLOMERULAR FILTRATION RATE 35.8 (>42); PHOSPHORUS LEVEL 3.8 MG/DL (2.5-4.9); POTASSIUM SERUM 5.2 MEQ/L (3.5-5.1); TOTAL PROTEIN 7.3 GM/DL (6.4-8.2); URIC ACID 8.3 MG/DL (3.5-7.2)
[2019-12-01 17:47] LABS: OSMOLALITY URINE 210 MOSM/KG (500-800)
[2019-12-01 18:11] LABS: APPEARANCE, URINE CLEAR (CLEAR); BACTERIA, URINE AUTO NEGATIVE (NEGATIVE); BILIRUBIN, URINE AUTO NEGATIVE (NEGATIVE); BLOOD, URINE BLOOD NEGATIVE (NEGATIVE); COLOR, URINE STRAW (YELLOW); CREATININE,RANDOM URINE 30.7 MG/DL; GLUCOSE, URINE (UA) AUTO NEGATIVE (NEGATIVE); KETONE, URINE AUTO NEGATIVE (NEGATIVE); LEUKOCYTE ESTERASE, URINE AUTO NEGATIVE (NEGATIVE); NITRITE, URINE AUTO NEGATIVE (NEGATIVE); POTASSIUM RANDOM URINE 30.6 MEQ/L; PROTEIN, URINE AUTO NEGATIVE (NEGATIVE); RBC, URINE AUTO 0 /HPF (0-3); SODIUM,RANDOM URINE 25 MEQ/L; SPECIFIC GRAVITY URINE AUTO 1.004 (1.002-1.035); SQUAMOUS EPITHELIAL CELL UR AU 0 /HPF (0-6); UROBILINOGEN, URINE AUTO 0.2 mg/dL (0.0-2.0); WBC, URINE AUTO 0 /HPF (0-3)
[2019-12-01 18:45] VITALS: BP 180/81
--- NOTE | 2019-12-28 16:45 | REP ---
NONCONTRAST CT ABDOMEN AND PELVIS CLINICAL: Acute renal failure. TECHNIQUE: Axial noncontrast images from the lung bases to the pubic symphysis with coronal and sagittal reformations. COMPARISON: 10/29/2015, 12/22/2015. FINDINGS: Lung bases demonstrate minimal chronic changes. Liver, spleen, pancreas, and bilateral adrenal glands are normal. Cholelithiasis noted without acute cholecystitis. Kidneys demonstrate mild atrophic change without perinephric stranding or hydronephrosis. The enteric system is without obstruction or acute inflammatory process. Normal terminal ileum and cecum identified in the right lower quadrant. Pelvis demonstrates normal bladder and age appropriate prostate/seminal vesicles. No ascites. No free air. No adenopathy. Atherosclerotic changes to the aorta and vasculature noted without aneurysm. Skeletal structures demonstrate degenerative changes and prior partial lumbar laminectomy. IMPRESSION: * Cholelithiasis. * No further acute abdominopelvic pathology appreciated. No ascites. No adenopathy. No focal inflammatory stranding. * Normal appearance of the kidneys without hydronephrosis or perinephric stranding. MTDD
== END 2019-12-01 18:45 | disposition home or self-care (01) ==
LOC: M ED 14:06
DX: N28.9 Disorder of kidney and ureter, unspecified (principal); I48.91 Unspecified atrial fibrillation; I25.10 Atherosclerotic heart disease of native coronary artery without angina pectoris; E11.9 Type 2 diabetes mellitus without complications; E78.5 Hyperlipidemia, unspecified; G89.29 Other chronic pain; M54.9 Dorsalgia, unspecified; Z95.5 Presence of coronary angioplasty implant and graft; F17.200 Nicotine dependence, unspecified, uncomplicated; Z79.01 Long term (current) use of anticoagulants; Z79.899 Other long term (current) drug therapy

== ENCOUNTER → 2020-03-10 | Outpatient (CLI) | payer SELFPAY | LOC: M LABSMTC 15:53 | PROVIDERS: ATTEND Pediatrics | DX: Z20.828 Contact with and (suspected) exposure to other viral communicable diseases (principal) ==

== ENCOUNTER → 2020-04-01 | Outpatient (CLI) | payer SELFPAY | LOC: M LABSMTC 10:29 | PROVIDERS: ATTEND Pediatrics | DX: Z20.828 Contact with and (suspected) exposure to other viral communicable diseases (principal) ==

== ENCOUNTER → 2020-09-08 | Outpatient (REF) | payer MEDICARE ==
[2020-09-08 19:00] LABS: PHOSPHORUS LEVEL 3.6 MG/DL (2.5-4.9)
[2020-09-08 19:11] LABS: PTH INTACT 54.2 PG/ML (18.5-88.0)
== END ==
LOC: M LAB REF 17:00
PROVIDERS: ATTEND Nurse Practitioner Adult Health
DX: E11.40 Type 2 diabetes mellitus with diabetic neuropathy, unspecified (principal)

== ENCOUNTER → 2020-10-14 | Outpatient (CLI) | payer MEDICARE ==
[~2020-10-14] MED LIST changes: +LOSA50TA28 PO; -LOSA50TA88 PO
== END ==
LOC: M PLAIMG 09:46
PROVIDERS: ATTEND Orthopaedic Surgery
DX: M51.36 Other intervertebral disc degeneration, lumbar region (principal)

== ENCOUNTER → 2020-12-30 | Outpatient (REF) | payer MEDICARE ==
[~2020-12-30] MED LIST changes: -LOSA50TA28 PO; +LOSA50TA88 PO
[2020-12-30 11:39] LABS: BASO # 0.1 10^3/uL (0.0-0.2); BASO % 0.8 % (0.0-1.0); EOS # 0.2 10^3/uL (0.0-0.5); EOS % 1.6 % (0.0-3.0); HEMATOCRIT 50.3 % (42.0-52.0); HEMOGLOBIN 16.7 g/dl (13.5-17.5); LYMPH # 1.5 10^3/uL (1.5-5.0); LYMPH % 14.3 % (24.0-44.0); MEAN CORPUSCULAR HEMOGLOBIN 30.4 pg (27.0-33.0); MEAN CORPUSCULAR HGB CONC 33.2 g/dl (32.0-36.5); MEAN CORPUSCULAR VOLUME 91.5 fl (80.0-96.0); MONO # 0.7 10^3/uL (0.0-0.8); MONO % 6.6 % (2.0-8.0); NEUTROPHILS # 7.8 10^3/uL (1.5-8.5); NEUTROPHILS % 75.7 % (36.0-66.0); PLATELET COUNT, AUTOMATED 242 10^3/uL (150-450); WHITE BLOOD COUNT 10.3 10^3/uL (4.0-10.0)
[2020-12-30 12:00] LABS: ERYTHROCYTE SEDIMENTATION RATE 6 mm/hr (0-20)
[2020-12-30 12:16] LABS: ALBUMIN 3.6 GM/DL (3.2-5.2); BILIRUBIN,TOTAL 0.6 MG/DL (0.2-1.0); C REACTIVE PROTEIN QUANTITATIV 0.44 MG/DL (0.00-0.30); CALCIUM LEVEL 9.5 MG/DL (8.8-10.2); CREATININE FOR GFR 1.41 MG/DL (0.70-1.30); GLOMERULAR FILTRATION RATE 52.5 (>42); POTASSIUM SERUM 4.4 MEQ/L (3.5-5.1); TOTAL PROTEIN 7.2 GM/DL (6.4-8.2)
[2021-01-01 01:07] LABS: ANA (HEP2) Positive (.); CYCLIC CITRULLINATED PEPTIDE 8 units (0-19); SSA SJOGRENS A <0.2 AI (0.0-0.9); SSB SJOGRENS B <0.2 AI (0.0-0.9)
== END ==
LOC: M SFHCRHEU 08:43
PROVIDERS: ATTEND Internal Medicine Rheumatology
DX: M54.41 Lumbago with sciatica, right side (principal); M54.42 Lumbago with sciatica, left side
CPT/HCPCS: 36415; 80053; 81374; 85025; 85652; 86038; 86140; 86200; 86235; 86431; G0463

== ENCOUNTER → 2021-01-16 | Outpatient (CLI) | payer MEDICARE ==
--- NOTE | 2021-01-16 13:59 | REP ---
INDICATION: LUMBAGO WITH SCIATICA, RIGHT SIDE. COMPARISON: 04/28/2013 TECHNIQUE: Five views FINDINGS: Bridging marginal osteophytosis is seen involving the imaged lower thoracic levels and the T12-L1 level bilaterally. This has increased from the prior exam. Heavy bilateral marginal osteophytosis is seen involving all other lumbar levels also increased from the prior exam. Vertebral body height and alignment is unchanged. There is a stable grade 1 L5 upon S1 spondylolisthesis. Heavy degenerative facet joint changes are present L3-4 through L5-S1 particularly L5-S1 and increased from the prior exam. There is advanced disc space narrowing at every level which has increased slightly from the prior exam. There is anterior lipping at every level. IMPRESSION: Advanced chronic changes as described above. <Electronically signed by Pritesh Nassar > 01/16/21 [id number]
--- NOTE | 2021-01-16 14:05 | REP ---
INDICATION: LUMBAGO WITH SCIATICA, RIGHT SIDE. COMPARISON: None. FINDINGS: Three views of the sacroiliac joints show them to be non-fused. There is no lysis or sclerosis of either the sacral or iliac side of either SI joint. There is no evidence of whiskering. There is no prominent osteophytosis. IMPRESSION: SI joints within normal limits. <Electronically signed by Pritesh Nassar > 01/16/21 [id number]
--- NOTE | 2021-01-16 14:08 | REP ---
INDICATION: LUMBAGO WITH SCIATICA, RIGHT SIDE. COMPARISON: 04/28/2013 TECHNIQUE: AP and lateral FINDINGS: Once again, there is right-sided marginal osteophytosis bridging at multiple levels status quo. There is no significant change in appearance of vertebral body height or alignment. There is degenerative disc space narrowing at every level which has increased particularly anteriorly at every level. IMPRESSION: Chronic changes as described above which have increased from the prior exam. <Electronically signed by Pritesh Nassar > 01/16/21 [id number]
--- NOTE | 2021-01-16 14:27 | REP ---
INDICATION: LUMBAGO WITH SCIATICA, RIGHT SIDE. COMPARISON: None. TECHNIQUE: AP, lateral, flexion/extension, bilateral oblique and open mouth views of the cervical spine. FINDINGS: Straightening of normal lordosis may be secondary to pain and or advanced chronic multilevel degenerative changes including osteophytosis, endplate sclerosis, disc space narrowing and facet hypertrophy. Open mouth view demonstrates normal C1-C2 articulation and odontoid process.No acute fracture/compression injury or subluxation. IMPRESSION: Straightening of normal lordosis and advanced multilevel degenerative spondylosis. No acute fracture/compression injury or subluxation. <Electronically signed by Raffy Samuel > 01/16/21 [id number]
== END ==
LOC: M PLAIMG 12:57
PROVIDERS: ATTEND Internal Medicine Rheumatology
DX: M54.41 Lumbago with sciatica, right side (principal); M51.36 Other intervertebral disc degeneration, lumbar region; M51.37 Other intervertebral disc degeneration, lumbosacral region; M43.16 Spondylolisthesis, lumbar region; M47.812 Spondylosis without myelopathy or radiculopathy, cervical region; M51.34 Other intervertebral disc degeneration, thoracic region

== ENCOUNTER → 2021-09-25 | Outpatient (REF) | payer MEDICARE ==
[~2021-09-25] MED LIST changes: +LOSA50TA28 PO; -LOSA50TA88 PO
[2021-09-25 18:32] LABS: BACTERIA, URINE AUTO NEGATIVE (NEGATIVE); RBC, URINE AUTO 10 /HPF (0-3); SQUAMOUS EPITHELIAL CELL UR AU 0 /HPF (0-6); WBC, URINE AUTO 0 /HPF (0-3)
== END ==
LOC: M LAB REF 17:09
PROVIDERS: ATTEND Internal Medicine Nephrology
DX: N18.32 Chronic kidney disease, stage 3b (principal); R31.29 Other microscopic hematuria

== ENCOUNTER → 2022-09-14 | Outpatient (CLI) | payer MEDICARE | LOC: M WUC 11:33 | PROVIDERS: ATTEND Nurse Practitioner Adult Health | DX: J44.9 Chronic obstructive pulmonary disease, unspecified (principal); G89.29 Other chronic pain ==

== ENCOUNTER → 2023-08-17 | Outpatient (REF) | payer MEDICARE ==
[~2023-08-17] MED LIST changes: +EZET10TA58 PO; -ZETI10TA16 PO
[2023-08-17 17:21] LABS: LIPASE 49 U/L (12-53)
[2023-08-17 17:22] LABS: AMYLASE 78 U/L (30-118)
== END ==
LOC: M LAB REF 16:26
PROVIDERS: ATTEND Nurse Practitioner Adult Health
DX: R10.11 Right upper quadrant pain (principal)

== ENCOUNTER → 2023-09-13 | Outpatient (CLI) | payer MEDICARE ==
[~2023-09-13] MED LIST changes: -AZEL0.055; +AZEL1SPR4
== END ==
LOC: M RAD 08:34
PROVIDERS: ATTEND Nurse Practitioner Adult Health
DX: R10.9 Unspecified abdominal pain (principal); K80.20 Calculus of gallbladder without cholecystitis without obstruction

== ENCOUNTER 2024-10-15 15:40 | Emergency (ER) | payer MEDICARE ==
[~2024-10-15] VITALS: Ht 175.3 cm; Wt 77.3 kg
[~2024-10-15 15:40] MED LIST changes: +GABA-1490 PO; -GABA600T4 PO
[2024-10-15 18:35] LABS: KETONE, URINE AUTO RFX NEGATIVE (NEGATIVE); LEUKOCYTE ESTERASE UR AUTO RFX NEGATIVE (NEGATIVE); MUCUS, URINE RFX SMALL (NEGATIVE); NITRITE, URINE AUTO RFX NEGATIVE (NEGATIVE); RBC, URINE AUTO RFX 6 /HPF (0-3); SQUAM EPITHELIAL CELL UR AURFX 0 /HPF (0-6); WBC, URINE AUTO RFX 0 /HPF (0-3)
[2024-10-15 18:43] LABS: BASO # 0.1 10^3/uL (0.0-0.2); BASO % 0.8 % (0.0-1.0); EOS # 0.2 10^3/uL (0.0-0.5); EOS % 1.9 % (0.0-3.0); LYMPH # 4.0 10^3/uL (1.5-5.0); LYMPH % 33.4 % (24.0-44.0); MONO # 0.9 10^3/uL (0.0-0.8); MONO % 7.2 % (2.0-8.0); NEUTROPHILS # 6.6 10^3/uL (1.5-8.5); NEUTROPHILS % 55.7 % (36.0-66.0); PLATELET COUNT, AUTOMATED 208 10^3/uL (150-450)
[2024-10-15 18:57] LABS: INR 1.61
[2024-10-15 19:01] LABS: ALT/SGPT 23.0 U/L (7.0-40); AST/SGOT 26.0 U/L (<34); CALCIUM LEVEL 10.4 MG/DL (8.3-10.6); CARBON DIOXIDE LEVEL 28.0 MMOL/L (20-31); CHLORIDE LEVEL 99.0 MMOL/L (98-107); CREATININE FOR GFR 1.44 MG/DL (0.70-1.30); GLOMERULAR FILTRATION RATE 50.1 (>42); POTASSIUM SERUM 4.7 MMOL/L (3.5-5.1); SODIUM LEVEL 137.0 MMOL/L (136-145)
[2024-10-15 21:42] VITALS: BP 105/72; TEMP 97.5; O2SAT 99
== END 2024-10-15 23:25 | disposition left against medical advice (07) ==
LOC: M ED 15:40
DX: Z53.21 Procedure and treatment not carried out due to patient leaving prior to being seen by health care provider (principal)

== ENCOUNTER → 2024-12-13 | Outpatient (CLI) | payer MEDICARE, OTHER | LOC: M PLAIMG 07:52 | PROVIDERS: ATTEND Nurse Practitioner Adult Health | DX: J44.9 Chronic obstructive pulmonary disease, unspecified (principal); I25.10 Atherosclerotic heart disease of native coronary artery without angina pectoris; J43.2 Centrilobular emphysema ==

== ENCOUNTER → 2025-01-23 | Outpatient (CLI) | payer MEDICARE ==
[~2025-01-23] MED LIST changes: +ISOVUE-370 76% 100 ML VIAL As Ordered ONE
== END ==
LOC: M RAD 12:28
PROVIDERS: ATTEND Internal Medicine Nephrology
DX: R63.4 Abnormal weight loss (principal); R10.85 Abdominal pain of multiple sites; J98.11 Atelectasis; K80.20 Calculus of gallbladder without cholecystitis without obstruction; R93.3 Abnormal findings on diagnostic imaging of other parts of digestive tract; K42.9 Umbilical hernia without obstruction or gangrene
CPT/HCPCS: 71260; 74177; Q9967